=== PATIENT | female | born 2000 | race Caucasian/White ===

== ENCOUNTER 2024-09-18 21:05 | Emergency (ER) | payer OTHER ==
[~2024-09-18] VITALS: Ht 165.1 cm; Wt 95.0 kg
[2024-09-18 21:28] VITALS: O2SAT 100
[2024-09-18 21:31] VITALS: BP 148/91; PULSE 89; RESP 18; TEMP 36.9; O2SAT 99
[2024-09-18 23:59] LABS: CLARITY URINE CLOUDY (CLEAR); COLOR URINE YELLOW (YELLOW); GLUCOSE URINE NEGATIVE (NEGATIVE); KETONES URINE NEGATIVE (NEGATIVE); LEUKOCYTE ESTERASE URINE 2+ (NEGATIVE); NITRITE URINE NEGATIVE (NEGATIVE); OCCULT BLOOD URINE TRACE (NEGATIVE); PH URINE 5.5 (4.5-8.0); PROTEIN URINE 2+ (NEGATIVE); SPECIFIC GRAVITY URINE 1.034 (1.005-1.030)
[2024-09-19 00:12] LABS: UCG SCREEN NEGATIVE
[2024-09-19] MEDS ORDERED: PHEN-815 MT (00:33)
[2024-09-19] MEDS ORDERED: CEPH500C2 MT (00:33)
[2024-09-19] MEDS: PHENAZOPYRIDINE HCL 100MG TABLET PO ONE (01:15)
[2024-09-19 04:18] LABS: WBC URINE TNTC /hpf (0-2)
[2024-09-19 04:19] LABS: SQUAMOUS EPITHELIAL CELL URINE FEW /lpf (RARE/1+)
[2024-09-19 04:23] LABS: BACTERIA URINE TRACE
== END 2024-09-19 01:16 | disposition home or self-care (01) ==
LOC: ER 21:05
DX: N39.0 Urinary tract infection, site not specified (principal)
CPT/HCPCS: 81003; 81025; 87210; 99283